=== PATIENT | male | born 1980 | race African-American/Black ===

== ENCOUNTER 2017-02-15 05:51 | Inpatient (IN) | payer OTHER ==
--- NOTE | ~2017-02-15 | DS ---
Unit #: [id number] #: [id number] Patient: DESEAN BYRNE [id number] [address] [address] [id number] I MR#: [id number] NAME: DESEAN BYRNE. ROOM: 201 Age: 36 Sex: M Admission Date: 02/15/2017 : 1980 Discharge Date: 02/15/2017 Attending Physician: Rajan Antunez M.D. Primary Care Physician: No Primary Care Physician DISCHARGE SUMMARY HISTORY OF PRESENT ILLNESS Please see his history and physical for complete details of hospital course. The patient's return potassium came back at 3.2 on repeat BMP. He was appropriately given 40 mEq of K-Dur. His repeat sodium was 131. At the present time, he is currently medically stable. He has been already evaluated by [facility] and he has been deemed appropriate for transfer. Once this is arranged, the patient will be transferred to [facility] for ongoing care. In regard to his elevated blood pressure, he did receive Toprol XL 25 mg and this should be continued at time of discharge. FINAL DISCHARGE DIAGNOSES 1. Mental status change. 2. Polysubstance abuse with urine tox screen positive for amphetamines and marijuana. 3. Accelerated hypertension, now improved. 4. Hyponatremia. 5. Hypokalemia. DISCHARGE MEDICATIONS Toprol XL 25 mg p.o. daily. [facility] underlying [facility] illness. Dictated by... Radha Pinon/shlomo TD: 02/16/2017 10:36 JOB #: [id number] Unit #: [id number] #: [id number] Patient: DESEAN BYRNE DISCHARGE SUMMARY Page 1 of 1 X Rajan Antunez MD X DISCHARGE SUMMARY
--- NOTE | ~2017-02-15 | HP ---
Unit #: [id number] #: [id number] Patient: DESEAN BYRNE [id number] [facility]. [place], [place] [address] [id number] I MR#: [id number] NAME: DESEAN BYRNE. ROOM: 201 Age: Sex: M Admission Date: 02/15/2017 : 1980 Attending Physician: Rajan Antunez M.D. Primary Care Physician: No Primary Care Physician HISTORY AND PHYSICAL REASON FOR ADMISSION Mental status change. HISTORY OF PRESENT ILLNESS The patient is a 36-year-old male, very poor historian with a very scattered, who at the present time is alert, oriented x3 and sitting currently in his room. He states he was not entirely sure what happened while he was at home. He remembers only a few things and stated that EMS services were called by his . When EMS services arrived, the patient was found to be confused and subsequently brought to the hospital for further evaluation and/or workup. Initial workup raised the possibility of hypokalemia to which was appropriately treated while he was here. His potassium level was 2.9. His sodium was 125. His urine tox screen was noted to be positive for amphetamines and marijuana. At the present time, he is sitting, no acute distress. Denies any chest pain whatsoever. He denies any shortness of breath. He is having some delusions and states that his is trying to get him. He is also having visual hallucinations while he is here in the room. PAST MEDICAL HISTORY 1. Prior history of drug abuse. 2. History of anxiety. 3. Hypertension. 4. Prior history of suicidal ideation. 5. Alcohol abuse per chart review. PAST SURGICAL HISTORY None. SOCIAL HISTORY Positive tobacco, alcohol, illicit drug use. HOME MEDICATIONS Not really sure patient is taking; however, he is able to tell me his medications. They include: 1. Bisoprolol. 2. Ativan. 3. Hydrochlorothiazide. 4. I also see trazodone as well as naltrexone written on his home medications. Again, I am not sure if patient is really taking any of his medications. Unit #: [id number] #: [id number] Patient: DESEAN BYRNE REVIEW OF SYSTEMS Please see HPI. A 12-point otherwise negative except for those positive and noted in the HPI. PHYSICAL EXAMINATION VITAL SIGNS: Patient's temperature 98.5, pulse 112, respiratory rate 16, blood pressure 158/17. GENERAL APPEARANCE: The patient is a 36-year-old male with a very bizarre affect, confused, disoriented, having visual hallucinations. HEENT: Head: Atraumatic, normocephalic. Ears: Tympanic membranes no erythema or injection. NECK: Supple. CARDIOVASCULAR: S1, S2 without murmur. RESPIRATORY: Clear. EXTREMITIES: Nontender, nondistended. Lower extremities have no evidence of lower extremity edema or calf tenderness. NEUROLOGIC: The patient is A and O x3; however, he exhibits very bizarre/odd behavior. INITIAL ADMISSION DIAGNOSES 1. Hypokalemia. 2. Hyponatremia. 3. Mental status change. 4. Drug abuse. 5. Polysubstance abuse. 6. Prior history of alcohol abuse. 7. Hypertension. 8. Noncompliance. 9. Visual/auditory hallucinations. PLAN 1. Admission to telemetry floor. 2. Replete sodium, potassium. 3. Recheck BMP. 4. (1) consultation. 5. Librium scheduled. 6. Ativan p.r.n. 7. Further hospital course to follow. 8. Patient likely will require either inpatient psychiatric observation and/or further disposition. May be difficult to discharge him home in the current situation until a safe disposition is planned. Dictated by Radha Pinon/shlomo TD: 02/16/2017 10:10 JOB #: [id number] Unit #: [id number] #: [id number] Patient: DESEAN BYRNE HISTORY AND PHYSICAL Page 1 of 1 X Rajan Antunez MD HISTORY AND PHYSICAL
--- NOTE | ~2017-02-15 | CT71 ---
[facility] RADIOLOGY TEXT RESULTS PATIENT: DESEAN BYRNE LOCATION: [facility] : [birth year] UNIT #: [id number] AGE: [address]: Rajan Antunez MD SEX: M ORDER DR: [id number] [facility] [address] [facility]. [place], [place] [address] [id number] I MR#: [id number] Acc #: [id number] NAME: DESEAN BYRNE. : 1980 SEX: M STUDY DATE/TIME: 02/15/2017 5:41 UNIT: [id number] PCU ROOM: [facility] STUDY DESCRIPTION: CT Head Wo Contrast Attending Physician: Rajan Antunez M.D. Ordering Physician: Ramon Botello M.D. Primary Care Physician: No Primary Care Physician MEDICAL IMAGING REPORT This report is preliminary unless electronic signature is present EXAM Noncontrast head CT. HISTORY Hypertensive, confusion, altered mental status. Brought in by EMS COMPARISON 04/27/[address] exam was performed with one or more of the following radiation dose reduction techniques: automatic exposure control, adjustment of mA and/or kV according to patient size, and iterative reconstruction. FINDINGS Axial noncontrast images were obtained from the skull base to the vertex. Ventricular size and configuration are normal. There is no evidence of acute infarct or hemorrhage. There are no extra-axial fluid collections. No mass lesion or mass effect is seen. There are no skull fractures. IMPRESSION Normal noncontrast head CT. Dictated by... Catrina Briscoe M.D. THIS IS AN ELECTRONICALLY VERIFIED REPORT Catrina Briscoe M.D. at 02/15/2017 10:05 PM TROY/brian TD: 02/15/2017 12:42 JOB #: [id number] [facility] RADIOLOGY TEXT RESULTS PATIENT: DESEAN BYRNE LOCATION: [facility] : [birth year] UNIT #: [id number] AGE: [address]: Rajan Antunez MD SEX: M ORDER DR: MEDICAL IMAGING REPORT Page 1 of 1 COPY
--- NOTE | ~2017-02-15 | DS ---
Unit #: [id number] #: [id number] Patient: DESEAN BYRNE [id number] [address] [place], [place] [address] [id number] I MR#: [id number] NAME: DESEAN BYRNE ROOM: 201 Age: 36 Sex: M Admission Date: 02/15/2017 : 1980 Discharge Date: 02/16/2017 Attending Physician: Rajna Antunez M.D. DISCHARGE SUMMARY ADDENDUM Please see History and Physical, as well as previous Discharge Summary for details. Initially, while we were planning to discharge the patient to [facility], patient began having increased agitated behavior, as well as significant behavioral disturbance with associated auditory and visual hallucinations. Therefore, I placed the patient on a 72-hour hold. Dr. Rivero saw and evaluated the patient early this morning and said that he was stable for discharge home. He will be reviewing his discharge medications prior to discharge. I have also discussed these plans with the patient's aunt who is also an R.N., and she states that off and on the patient over the past several weeks has been in and out of drug rehab and alcohol rehab, as well as has not always been compliant with routine medications. At this point in time, patient is medically stable. His hyponatremia and hypokalemia issues have now been resolved. He ultimately will require very close outpatient followup with his psychiatrist, and plans have been reviewed with the patient's family in detail as well. FINAL DISCHARGE DIAGNOSES 1. Hypokalemia. 2. Hyponatremia. 3. Prior history of drug abuse. 4. Anxiety. 5. Hypertension. 6. Underlying mental illness. 7. Prior history of suicidal ideation. 8. Alcohol abuse history. 9. Questionable compliance with medications. FINAL DISCHARGE MEDICATIONS 1. Toprol-XL 25 mg p.o. daily. 2. ReVia 50 mg p.o. daily. 1. Dictated by... Rajan Antunez M.D. ISN/am TD: 02/16/2017 22:07 Unit #: [id number] #: [id number] Patient: DESEAN BYRNE JOB #: [id number] DISCHARGE SUMMARY Page 1 of 1 X Rajan Antunez MD DISCHARGE SUMMARY
--- NOTE | ~2017-02-15 | EKG ---
PATIENT: DESEAN BYRNE UNIT #: [id number] Ventricular Rate: 90 BPM Atrial Rate: 90 BPM P-R Interval: 156 ms QRS Duration: 98 ms Q-T Interval: 428 ms QTC Calculation(Bezet): 523 ms P [place]: 74 degrees Calculated R [place]: 13 degrees Calculated T [place]: 64 degrees Diagnosis Line: Normal sinus rhythm Diagnosis Line: Anteroseptal infarct , age undetermined Diagnosis Line: Prolonged QT Diagnosis Line: Abnormal ECG Diagnosis Line: When compared with ECG of 27-APR-2016 17:29, Diagnosis Line: Borderline criteria for Anteroseptal infarct are Diagnosis Line: now Present Diagnosis Line: QT has lengthened Diagnosis Line: Confirmed by ANNA SANDHU MD ([id number]) on 02/16/2017 Diagnosis Line: 4:05:52 PM INTERPRETING MD: EDSON PEOPLES
--- NOTE | ~2017-02-15 | CO ---
Unit #: [id number] #: [id number] Patient: GABRIEL FRANK [id number] [facility] [address] [facility]. [place], [place] [address] [id number] MR#: [id number] NAME: GABRIEL FRANK ROOM: 201 Age: 36 Sex: M Admission Date: 02/15/2017 : 1980 Attending Physician: Rajan Antunez M.D. Consultation Date: 02/16/2017 CONSULTATION REPORT REASON FOR CONSULTATION Agitation, aggression, paranoia, hallucinations. HISTORY OF PRESENT ILLNESS Mr. Gabriel Frank is a 36-year-old male seen in room 201 on February 16, 2017, at [facility]. Patient was admitted with mental status change. Patient was confused, guarded, paranoid, and hallucinating. Patient was treated with Haldol and responded well. Patient has a sitter. Patient was dressed casually in hospital attire and lying comfortably in bed. Patient was able to give a coherent history but was not sure about the reason for coming to the hospital. Patient at this time is alert and oriented in time, place, and person. He denied any current suicidal or homicidal ideation and denied any psychotic symptoms. Patient denied any use of drugs or alcohol, but urine drug screen was positive for amphetamine and marijuana. PAST PSYCHIATRIC HISTORY Prior history of suicidal ideation, anxiety, and drug abuse according to the previous reports. Patient has a history of previous treatment at [facility] with last admission in 2010 for major depression. Currently on no psychotropic medication. PAST MEDICAL HISTORY Hypertension. MEDICATIONS None. FAMILY HISTORY/SOCIAL HISTORY Patient has good support from his family. No history of abuse. History of substance abuse as mentioned above. REVIEW OF SYSTEMS A complete review of systems is unremarkable at this time. MENTAL STATUS EXAMINATION VITAL SIGNS: Temperature 97.8, pulse 89, respirations 18, blood pressure 107/74, and oxygen saturation 100%. GENERAL APPEARANCE: Patient is dressed casually in hospital attire and lying comfortably in bed. Made good eye contact. Cooperative. Attention span and concentration, fair. Speech, regular rate and coherent. Oriented in time, place, and person. Mood and affect, sad and dysphoric. Thought process, coherent. Thought content, patient denied any thoughts of harming self or others. Recent and remote memory, fair. Language, Unit #: [id number] #: [id number] Patient: GABRIEL FRANK. Fund of knowledge, fair. Insight and judgment, fair to slightly impaired. DIAGNOSES PSYCHIATRIC: 1. Delirium F05, resolved. 2. Psychosis not otherwise specified, F29.0, resolved. 3. Alcohol use disorder, moderate, F10.20. 4. Marijuana abuse, moderate, F12.20. 5. Amphetamine abuse disorder, moderate, F15.20. SECONDARY DIAGNOSES: Deferred. MEDICAL DIAGNOSES: Please refer to H and P. STRESSORS: Psychosocial stressors. ASSESSMENT AND PLAN 1. Supportive psychotherapy and psychoeducation provided to patient. 2. Educated about benefits and side effects of medications and course and prognosis of illness. Patient was successfully treated with Haldol, Cogentin, and Ativan, and responded well. At this time, patient denied any complaints. 3. Recommending at this time to discontinue one-on-one sister as patient is not suicidal or psychotic. Patient can be discharged home if medically stable and follow up in the outpatient [facility] at [facility]. Patient was given crisis line number [phone]. 4. Please feel free to call with any questions at telephone number [phone]. 1. Dictated by... Radha Barrios/brandie TD: 02/16/2017 15:07 JOB #: [id number] CONSULTATION REPORT Page 1 of 1 X Kye Rivero MD X CONSULTATION REPORT
[2017-02-15 05:31] LABS: POC - CKMB 4.6 ng/mL (0.0-7.9); POC - TROPONIN 0.16 ng/mL (<=0.05)
[2017-02-15 05:47] LABS: BASOPHIL% 0.4 % (0-2.5); EOSINOPHIL% 0.1 % (0.0-7.0); HEMATOCRIT 44.8 % (38.0-50.0); HEMOGLOBIN 14.5 gm/dL (13.0-16.0); LYMPHOCYTE# 1.1 X10e3 (1.0-3.5); LYMPHOCYTE% 13.2 % (17.0-45.0); MEAN CELL VOLUME 91.5 FL (83-96); MEAN CORPUSCULAR HEMOGLOBIN 29.5 PG (28-34); MEAN CORPUSCULAR HGB CONC 32.3 g/dL (30-36); MEAN PLATELET VOLUME 7.7 FL (6.5-11.5); MONOCYTE% 12.2 % (3.0-12.0); NEUTROPHIL% 74.1 % (40-75); PLATELET COUNT 315 X10e3 (140-420); RED BLOOD COUNT 4.89 X10e (3.90-5.60); RED CELL DISTRIBUTION WIDTH 14.9 % (11.0-15.5)
[~2017-02-15 05:51] MED LIST: BISOPROLOL-HCT1 EAC1 PO; DULCOLAX5 M1 PO; HYDROCODONE/APA1 T15 DOB; LISINOPRIL PO; LISINOPRIL20 MG PO; NORVASC PO; OMEPRAZOLE40 M1 PO
[2017-02-15 06:02] LABS: AMPHETAMINE POS (NEG); BARBITURATES NEG (NEG); BENZODIAZEPINES NEG (NEG); COCAINE NEG (NEG); MARIJUANA POS (NEG); OPIATES NEG (NEG); TRICYCLIC ANTIDEPRESSANTS NEG (NEG); U METHADONE NEG (NEG)
[2017-02-15 06:04] LABS: DIFF IND NO
[2017-02-15 06:18] LABS: URINE SOURCE CLEAN CATCH
[2017-02-15 06:23] LABS: URINE APPEARANCE CLEAR; URINE BILIRUBIN NEG (NEG); URINE BLOOD 1+ (NEG); URINE COLOR YELLOW; URINE GLUCOSE NEG (NEG); URINE KETONE 1+ (NEG); URINE LEUKOCYTE ESTERASE NEG (NEG); URINE NITRATE NEG (NEG); URINE PROTEIN 1+ (NEG); URINE SPECIFIC GRAVITY 1.014 (1.003-1.035)
[2017-02-15 06:26] LABS: URINE BACTERIA AUWI NEG (NEGATIVE); URINE SQUAMOUS EPITHELIAL CELL OCC /[HPF]
[2017-02-15 06:36] LABS: CULTURE INDICATED? NO; U HYALINE CASTS AUWI 0-2 /[LPF]
[2017-02-15 07:07] LABS: ALKALINE PHOSPHATASE 104 U/L (32-92); ALT (SGPT) 30 U/L (10-40); AST (SGOT) 65 U/L (10-42); BILIRUBIN, DIRECT 0.2 mg/dL (0.0-0.2); BILIRUBIN,TOTAL 1.2 mg/dL (0.2-2.0); BLOOD UREA NITROGEN 8 mg/dL (9-23); BUN/CREATININE RATIO 5.71; CALCIUM SERUM 9.8 mg/dL (8.4-10.2); CARBON DIOXIDE 19 mmol/L (22-31); CHLORIDE 86 mmol/L (100-111); CREATININE SERUM 1.4 mg/dL (0.6-1.4); GLOM FILT RATE Estimated 74.4 mL/min (>60); GLUCOSE FASTING 174 mg/dL (70-110); PROTEIN TOTAL SERUM 8.1 g/dL (6.0-8.3)
[2017-02-15 07:11] LABS: SODIUM 125 mmol/L (135-145)
[2017-02-15 07:12] LABS: ALCOHOL BLOOD <5 mg/dL (0); POTASSIUM 2.9 mmol/L (3.5-5.1)
[2017-02-15 07:47] LABS: POC - CKMB 6.2 ng/mL (0.0-7.9); POC - TROPONIN 0.17 ng/mL (<=0.05)
[2017-02-15] MEDS ORDERED: REVIA50 MG PO (10:02)
[2017-02-15] MEDS ORDERED: TRAZODONE HCL150 MG PO (10:02)
[2017-02-15] MEDS ORDERED: BISOPROLOL-HCT1 EAC1 PO (10:03)
[2017-02-15 15:54] LABS: CALCIUM SERUM 9.6 mg/dL (8.4-10.2); GLOM FILT RATE Estimated 111.7 mL/min (>60); POTASSIUM 3.2 mmol/L (3.5-5.1)
[2017-02-16 05:07] LABS: HEMATOCRIT 39.5 % (38.0-50.0); HEMOGLOBIN 12.7 gm/dL (13.0-16.0); MEAN CELL VOLUME 91.6 FL (83-96); MEAN CORPUSCULAR HEMOGLOBIN 29.5 PG (28-34); MEAN CORPUSCULAR HGB CONC 32.2 g/dL (30-36); MEAN PLATELET VOLUME 8.1 FL (6.5-11.5); RED BLOOD COUNT 4.31 X10e (3.90-5.60); RED CELL DISTRIBUTION WIDTH 15.2 % (11.0-15.5)
[2017-02-16 05:37] LABS: BUN/CREATININE RATIO 6.66; CALCIUM SERUM 8.4 mg/dL (8.4-10.2); CREATININE SERUM 0.9 mg/dL (0.6-1.4); GLOM FILT RATE Estimated 126.9 mL/min (>60); POTASSIUM 3.5 mmol/L (3.5-5.1)
[2017-02-16] MEDS ORDERED: TOPROL XL (11:56)
== END 2017-02-16 12:07 | DRG 641 ==
LOC: CED 05:51 → CEDOF 09:28 → C3A PCU 10:55 → C2A 19:47
PROVIDERS: Emergency Medicine; Family Medicine
DX: E87.1 Hypo-osmolality and hyponatremia (principal); I10 Essential (primary) hypertension; F19.10 Other psychoactive substance abuse, uncomplicated; E87.6 Hypokalemia; F41.9 Anxiety disorder, unspecified; F17.210 Nicotine dependence, cigarettes, uncomplicated; Z91.19 Patient's noncompliance with other medical treatment and regimen; F10.10 Alcohol abuse, uncomplicated; F15.10 Other stimulant abuse, uncomplicated; F29 Unspecified psychosis not due to a substance or known physiological condition
CPT/HCPCS: 36415; 70450; 80048; 80076; 80307; 81003; 82140; 82553; 82947; 84484; 85025; 85027; 93005; 96360; 99285; G0480